=== PATIENT | male | born 1995 | race African-American/Black ===

== ENCOUNTER 2019-04-22 17:04 | Emergency (ER) | payer MEDICAID ==
[~2019-04-22] VITALS: Ht 193 cm; Wt 118.0 kg
[2019-04-22 18:13] VITALS: BP 164/80
== END 2019-04-22 22:05 | disposition left against medical advice (07) ==
LOC: ER 17:04
DX: Z53.21 Procedure and treatment not carried out due to patient leaving prior to being seen by health care provider (principal); R07.89 Other chest pain
CPT/HCPCS: 93005